=== PATIENT | male | born 2000 | race Caucasian/White ===

== ENCOUNTER 2020-02-14 16:43 | Emergency (ER) | payer OTHER, SELFPAY ==
[2020-02-14 16:45] VITALS: BP 141/70; PULSE 70; RESP 16; TEMP 36.2; O2SAT 100
--- NOTE | 2020-02-14 17:34 | ED_ITS ---
HPI - Abdominal Pain <Jose London MD - Last Filed: 02/15/20 08:27> General Chief Complaint: Abdominal Pain Stated Complaint: SHARP PAIN TO STOMACH Time Seen by Provider: 02/14/20 17:26 Source: patient and family (Mother) Mode of arrival: Ambulatory Limitations: no limitations History of Present Illness HPI narrative: Patient complains 2 days of right lower quadrant pain. Nausea but no vomiting. No urinary complaints. No blood in your stools. Pain does not radiate. Pain is sharp. Worse with movement. Better with lying still. Mother at bedside. Denies any medical problems or surgical problems. Related Data Previous Rx's Medication Instructions Recorded amoxicillin-pot clavulanate 1 tab PO BID #20 tab 02/14/20 [Augmentin] hydrocodone-acetaminophen 1 tab PO Q4-6H PRN #10 tab 02/14/20 ondansetron 4 mg PO TID-QID PRN #10 tab 02/14/20 Allergies Allergy/AdvReac Type Severity Reaction Status Date / Time No Known Drug Allergies Allergy Verified 02/14/20 18:50 Review of Systems <Jose London MD - Last Filed: 02/15/20 08:27> Review of Systems Narrative: GENERAL: Denies chills, fatigue, malaise, fever, sweats. HEENT: Denies sinus pain, ear pain, sore throat, difficulty swallowing, dizziness. RESPIRATORY: Denies dyspnea, cough, wheezing, hemoptysis, sputum. CARDIOVASCULAR: Denies chest pain, palpitations, orthopnea, edema, GASTROINTESTINAL: Has nausea and abdominal pain. No vomiting diarrhea constipation or blood in stools : Denies dysuria, frequency, incontinence, hematuria, urinary retention. MUSCULOSKELETAL: denies weakness, joint pain, or bony pain SKIN: Denies rash, skin lesions, or other NEUROLOGIC: Denies weakness, headache, numbness, change in speech, confusion, seizures, incoordination. PSYCHIATRIC: No concerning psychosocial issues. ROS Unobtainable: All systems reviewed & are unremarkable except as noted in HPI and below Patient History <Jose London MD - Last Filed: 02/15/20 08:27> Social History Smoking Status: Never smoker Smoking Status: Never smoker Substance Use Type: does not use Exam <Jose London MD - Last Filed: 02/15/20 08:27> Narrative Exam Narrative: GENERAL: patient appears stated age. Well-nourished, well-develo ped patient, in no distress, not toxic HEAD: Atraumatic. Normocephalic. EYES: Pupils equal round and reactive. Extraocular motions intact. No scleral icterus. No injection or drainage. ENT: Nose without bleeding, purulent drainage. Throat without erythema, tonsillar hypertrophy or exudate. Airway patent. NECK: Trachea midline. Non tender CARDIOVASCULAR: Regular rate and rhythm without murmurs, gallops, or rubs. RESPIRATORY: Clear to auscultation. Breath sounds equal bilaterally. No wheezes, rales, or rhonchi. GASTROINTESTINAL: Abdomen is soft, nondistended. No peritoneal signs. Negativ e Jennings sign. Positive McBurney point tenderness.. EXTREMITIES: No edema or joint tenderness. BACK: Nontender without deformity or crepitance. No flank tenderness. NEURO: AOx3. SKIN: No rash or erythema of visible areas Initial Vital Signs Initial Vital Signs: Vital Signs Temperature 97.1 F L 02/14/20 16:45 Pulse Rate 70 02/14/20 16:45 Respiratory Rate 16 02/14/20 16:45 Blood Pressure 141/70 H 02/14/20 16:45 Pulse Oximetry 100 02/14/20 16:45 <Mina Diaz DO - Last Filed: 02/14/20 20:10> Initial Vital Signs Initial Vital Signs: Vital Signs Temperature 97.1 F L 02/14/20 16:45 Pulse Rate 70 02/14/20 16:45 Respiratory Rate 16 02/14/20 16:45 Blood Pressure 141/70 H 02/14/20 16:45 Pulse Oximetry 100 02/14/20 16:45 Course <Jose London MD - Last Filed: 02/15/20 08:27> Course Course Narrative: Time 6:12 p[address] sign-out Dr. diaz, ct and labs pending Orders Ordered: Discontinued Medications Sodium Chloride (Normal Saline 0.9%) 1,000 mls @ 1,000 mls/hr IV BOLUS ONE Stop: 02/14/20 18:31 Last Infusion: 02/14/20 18:50 Dose: 1,000 mls/hr Documented by: Admin: 02/14/20 17:49 Dose: 1,000 mls/hr Documented by: SAVANNA Ondansetron HCl (Zofran) 4 mg IV NOW ONE Stop: 02/14/20 17:33 Last Admin: 02/14/20 17:50 Dose: 4 mg Documented by: SAVANNA Vital Signs Vital signs: Vital Signs - 8 hr 02/14/20 16:45 Temperature 97.1 F L Pulse Rate 70 Respiratory Rate 16 Blood Pressure 141/70 H Pulse Oximetry 100 <Mina Diaz DO - Last Filed: 02/14/20 20:10> Course Course Narrative: Patient received in sign-out from Dr. London. I performed an independent history and physical exam and have no significant additions or alterations. No testicular pain or swelling. Neg. rovsing's, Psoas, Obturator. Labs have been reviewed as well as imaging. Orders Ordered: Discontinued Medications Sodium Chloride (Normal Saline 0.9%) 1,000 mls @ 1,000 mls/hr IV BOLUS ONE Stop: 02/14/20 18:31 Last Infusion: 02/14/20 18:50 Dose: 1,000 mls/hr Documented by: Admin: 02/14/20 17:49 Dose: 1,000 mls/hr Documented by: SAVANNA Ondansetron HCl (Zofran) 4 mg IV NOW ONE Stop: 02/14/20 17:33 Last Admin: 02/14/20 17:50 Dose: 4 mg Documented by: SAVANNA Vital Signs Vital signs: Vital Signs - 8 hr 02/14/20 16:45 Temperature 97.1 F L Pulse Rate 70 Respiratory Rate 16 Blood Pressure 141/70 H Pulse Oximetry 100 MDM - Abdominal Pain <Jose London MD - Last Filed: 02/15/20 08:27> Differential Diagnosis Differential diagnosis: Likely abdominal pain, acute appendicitis, diverticulitis and pancreatitis Lab Data Result diagrams: 02/14/20 17:45 02/14/20 17:45 Labs: Lab Results 02/14/20 02/14/20 Range/Units 17:45 17:45 WBC 5.5 (4.5-11.0) X10^3/uL RBC 5.28 (4.5-5.9) X10^6/uL Hgb 16.9 (13.5-17.5) g/dL Hct 48.0 (41-53) % MCV 90.9 (80-100) fL MCH 32.0 (26-34) PG MCHC 35.2 (30-36) % RDW 12.8 (11.6-14.8) % Plt Count 206 (150-400) X10^3/uL Neut % (Auto) 47.6 L (50-75) % Lymph % (Auto) 37.2 (25-40) % [place] % (Auto) 10.7 (3-14) % Eos % (Auto) 4.0 (2-4) % Baso % (Auto) 0.5 (0-2) % Neut # (Auto) 2600 (6271-4813) /uL Lymph # (Auto) 2000 (5185-2869) /uL [place] # (Auto) 600 (0-900) /uL Eos # (Auto) 200 (0-450) /uL Baso # (Auto) 0 (0-100) /uL Sodium 138 (137-145) mmol/L Potassium 4.2 (3.4-5.1) mmol/L Chloride 101 (98-107) mmol/L Carbon Dioxide 28 (22-32) mmol/L BUN 16 (9-20) mg/dL Creatinine 1.01 (0.66-1.25) mg/dL Estimated GFR > 60.0 (>60) mL/min BUN/Creatinine Ratio 15.8 (6-22) Glucose 89 (70-100) mg/dL Calcium 9.9 (8.4-10.2) mg/dL Total Bilirubin 0.8 (0.2-1.3) mg/dL AST 29 (17-59) IU/L ALT 26 (<50) IU/L Alkaline Phosphatase 60 (38-126) U/L Total Protein 8.4 H (6.3-8.2) g/dL Albumin 4.7 (3.5-5.0) g/dL Globulin 3.7 (1.7-4.1) g/dL Albumin/Globulin Ratio 1.3 (1.0-2.8) Lipase 79 (23-300) U/L Point of care testing: Urine Dip Bedside Urine Glucose Negative Bedside Urine Bilirubin - Negative Bedside Urine Ketone - Negative Bedside Urine Occult Blood - Negative Bedside Urine Protein +/- 15 Bedside Urine Urobilinogen +/- 1mg Bedside Urine Nitrite - Negative Bedside Urine Leukocytes - Negative Esterase <Mina Diaz DO - Last Filed: 02/14/20 20:10> Lab Data Labs: Lab Results 02/14/20 02/14/20 Range/Units 17:45 17:45 WBC 5.5 (4.5-11.0) X10^3/uL RBC 5.28 (4.5-5.9) X10^6/uL Hgb 16.9 (13.5-17.5) g/dL Hct 48.0 (41-53) % MCV 90.9 (80-100) fL MCH 32.0 (26-34) PG MCHC 35.2 (30-36) % RDW 12.8 (11.6-14.8) % Plt Count 206 (150-400) X10^3/uL Neut % (Auto) 47.6 L (50-75) % Lymph % (Auto) 37.2 (25-40) % [place] % (Auto) 10.7 (3-14) % Eos % (Auto) 4.0 (2-4) % Baso % (Auto) 0.5 (0-2) % Neut # (Auto) 2600 (0944-0650) /uL Lymph # (Auto) 2000 (4502-2983) /uL [place] # (Auto) 600 (0-900) /uL Eos # (Auto) 200 (0-450) /uL Baso # (Auto) 0 (0-100) /uL Sodium 138 (137-145) mmol/L Potassium 4.2 (3.4-5.1) mmol/L Chloride 101 (98-107) mmol/L Carbon Dioxide 28 (22-32) mmol/L BUN 16 (9-20) mg/dL Creatinine 1.01 (0.66-1.25) mg/dL Estimated GFR > 60.0 (>60) mL/min BUN/Creatinine Ratio 15.8 (6-22) Glucose 89 (70-100) mg/dL Calcium 9.9 (8.4-10.2) mg/dL Total Bilirubin 0.8 (0.2-1.3) mg/dL AST 29 (17-59) IU/L ALT 26 (<50) IU/L Alkaline Phosphatase 60 (38-126) U/L Total Protein 8.4 H (6.3-8.2) g/dL Albumin 4.7 (3.5-5.0) g/dL Globulin 3.7 (1.7-4.1) g/dL Albumin/Globulin Ratio 1.3 (1.0-2.8) Lipase 79 (23-300) U/L Point of care testing: Urine Dip Bedside Urine Glucose Negative Bedside Urine Bilirubin - Negative Bedside Urine Ketone - Negative Bedside Urine Occult Blood - Negative Bedside Urine Protein +/- 15 Bedside Urine Urobilinogen +/- 1mg Bedside Urine Nitrite - Negative Bedside Urine Leukocytes - Negative Esterase Imaging Data CT scan - abdomen/pelvis: Radiologist's Impression: Chart Viewer Diagnostics DATE TYPE STATUS AUTHOR Hx 02/14/20 17:33 Audrey Sweet [place] 19, M0 2000 [facility] ER, [facility] ED 97.522kg Abdominal Pain Search Chart No Data to Display ONSET Today 18:52 Jasmeet Da Silva 19 M [address] [place] [address] CT Scan Report Signed Patient: Connor Da Silva#: [id number] : 2000Acct:[id number] Age/Sex: 19 / MDate of Service: 02/14/20 Loc: ED Accession Number: [id number] Procedure: CT abdomen pelvis w con Ordering Provider: Jose London MD PROCEDURE: CT ABDOMEN PELVIS W CON INDICATIONS: Abdominal pain TECHNIQUE: After the administration of intravenous contrast, 5 mm thick sections acquired from the diaphragm to the symphysis. 5 mm coronal and sagittal reformats were acquired. For radiation dose reduction, the following was used: automated exposure control, adjustment of mA and/or kV according to patient size. COMPARISON: None. FINDINGS: Image quality: Excellent. ABDOMEN: Lung bases: Lung bases are clear. Heart size is normal. Solid organs: Liver is normal in size and enhancement. Gallbladder is unremarkable. Biliary system is non dilated. Pancreas enhances normally. Spleen is normal in size and enhancement. No adrenal nodules. Kidneys demonstrate normal size and enhancement, without hydronephrosis. Peritoneum and bowel: The stomach is filled with food debris. The small bowel demonstrates normal caliber and wall thickness. The appendix is thin walled. The ascending colon and the proximal transverse colon demonstrate normal caliber and wall thickness. There is circumferential wall thickening of the transverse colon, the splenic flexure, and the descending colon. The sigmoid colon has a normal appearance. There is trace pericolonic fat stranding around the thickened colon. Nodes and vessels: No retroperitoneal or mesenteric adenopathy by size criteria. Aorta and inferior vena cava are normal in size. Miscellaneous: No ventral hernias. PELVIS: Genitourinary: Bladder wall thickness is normal. Miscellaneous: No inguinal hernias or adenopathy. Bones: No suspicious bony lesions. No vertebral body compression fractures. IMPRESSION: 1. Circumferential wall thickening of the left hemicolon suggesting mild colitis. No findings to suggest abscess or perforation. 2. Normal appendix. Dictated by: Audrey Sweet M.D. on 02/14/2020 at 18:23 Approved by: Audrey Sweet M.D. on 02/14/2020 at 18:26 MDM Narrative Medical decision making narrative: Multiple etiologies for patient's symptoms considered including: [Appendicitis versus bowel obstruction versus kidney stone versus testicular torsion versus other] Patient's symptoms improved or duration of stay with above-stated therapies. Findings and discharge diagnosis discussed with patient/family followed by verbalization of understanding Return precautions discussed with patient/family whom verbalize understanding. Discharge Plan Departure Patient Disposition: Home Clinical Impression: Colitis Discharge Date/Time: 02/14/20 18:53 Instructions: DI for Colitis Activity Restrictions/Additional Instructions: 1. Drink plenty of fluids with frequent small sips. 2. For the next 24 hours a clear liquid diet is advised. After that please e mploy a brat diet which would include bananas, rice, apples, toast. 3. Please take medications as directed. 4. Please follow-up with your doctor in the next 1-2 days. Call the office for an appointment. 5. Please return to the emergency Department for any worsening or persistent symptoms, such as increasing pain or fever. Prescriptions: New hydrocodone-acetaminophen 5-325 mg tablet 1 tab PO Q4-6H PRN (Reason: pain) Qty: 10 RF: 0 ondansetron 4 mg tablet,disintegrating 4 mg PO TID-QID PRN (Reason: nausea and vomiting) Qty: 10 RF: 0 amoxicillin-pot clavulanate [Augmentin] 875-125 mg tablet 1 tab PO BID Qty: 20 RF: 0
[2020-02-14] MEDS: SODIUM CHLORIDE 0.9% 1,000 ML 1000 ML IV (17:49)
[2020-02-14] MEDS: ONDANSETRON 4 MG/2 ML INJ IV (17:50)
[2020-02-14 17:56] LABS: Add Manual Diff / Slide Review NO; Basophils Absolute Auto 0 /uL (0-100); Basophils Percent Auto 0.5 % (0-2); Eosinophils Absolute Auto 200 /uL (0-450); Hemoglobin 16.9 g/dL (13.5-17.5); Lymphocytes Absolute Auto 2000 /uL (1100-4500); Lymphocytes Percent Auto 37.2 % (25-40); Mean Corpuscular HGB Conc 35.2 % (30-36); Mean Corpuscular Volume 90.9 fL (80-100); Monocytes Absolute Auto 600 /uL (0-900); Monocytes Percent Auto 10.7 % (3-14); Neutrophils Absolute Auto 2600 /uL (1500-7000); Neutrophils Percent Auto 47.6 % (50-75); Platelet Count 206 X10^3/uL (150-400); Red Blood Cell Count 5.28 X10^6/uL (4.5-5.9); Red Cell Distribution Width 12.8 % (11.6-14.8); White Blood Cell Count 5.5 X10^3/uL (4.5-11.0)
[2020-02-14 18:07] LABS: Alanine Aminotransferase 26 IU/L (<50); Albumin 4.7 g/dL (3.5-5.0); Albumin Globulin Ratio 1.3 (1.0-2.8); Alkaline Phosphatase 60 U/L (38-126); Aspartate Aminotransferase 29 IU/L (17-59); BUN Creatinine Ratio 15.8 (6-22); Bilirubin Total 0.8 mg/dL (0.2-1.3); Blood Urea Nitrogen 16 mg/dL (9-20); Calcium 9.9 mg/dL (8.4-10.2); Carbon Dioxide 28 mmol/L (22-32); Chloride 101 mmol/L (98-107); Estimated Glomerular Filt Rate > 60.0 mL/min (>60); Globulin 3.7 g/dL (1.7-4.1); Glucose 89 mg/dL (70-100); HEMOLYSIS < 15 (0-50); Lipase 79 U/L (23-300); Potassium 4.2 mmol/L (3.4-5.1); Sodium 138 mmol/L (137-145); Total Protein 8.4 g/dL (6.3-8.2)
== END 2020-02-14 18:53 | disposition home or self-care (01) ==
PROVIDERS: Emergency Medicine; Emergency Provider Emergency Medicine
DX: K52.9 Noninfective gastroenteritis and colitis, unspecified (principal); R11.0 Nausea
CPT/HCPCS: 36415; 74177; 80053; 81003; 83690; 85025; 96361; 96374; 99284; J2405